=== PATIENT | male | born 1945 | race Caucasian/White ===

== ENCOUNTER 2017-07-06 20:40 | Emergency (ER) | payer MEDICARE, OTHER ==
[2017-07-06] MEDS ORDERED: Clindamycin Phosphate 300 MG/2 ML SDV IM ONE (22:09)
[2017-07-06] MEDS ORDERED: Clindamycin HCl 150 MG Cap PO ONE (22:09)
--- NOTE | 2017-07-06 22:13 | EDM.PDOC ---
ED HPI GENERAL MEDICAL PROBLEM - General Chief Complaint: ENT Problem Stated Complaint: TOOTH PAIN FACE SWOLLEN Time Seen by Provider: 07/06/17 21:55 Source of Information: Reports: Patient History Limitations: Reports: No Limitations - History of Present Illness INITIAL COMMENTS - FREE TEXT/NARRATIVE: Patient is a 72-year-old male who presents ED complaining of right lower jaw pain secondary to tooth abscess. Patient states Thursday he started developing some tenderness to this region. This progressed over the course of the last few days with increased swelling and also pain. Appetite has been poor. Denies any documented fever. He has a history of poor dentition and has had a tooth abscess in the past. He is planning to get in with this dentist tomorrow for evaluation. Denies any nausea or vomiting, stiff neck, and or headache. Patient is on Cardizem, lisinopril, warfarin, and metoprolol for hypertension and atrial fibrillation. Treatments MINISTER HELPER: Reports: NSAIDS Right Face Pain Score (Numeric/FACES): 4 - Related Data Allergies Allergy/AdvReac Type Severity Reaction Status Date / Time No Known Allergies Allergy Verified 07/06/17 20:51 Home Meds: Home Meds Clindamycin HCl 300 mg PO TID #21 capsule 07/06/17 [Rx] Diltiazem HCl [Diltiazem 24Hr Cd] 180 mg PO DAILY 07/06/17 [History] Lisinopril 20 mg PO DAILY 07/06/17 [History] Metoprolol Tartrate 50 mg PO DAILY 07/06/17 [History] Warfarin [Coumadin] 5 mg PO DAILY 07/06/17 [History] Past Medical History HEENT History: Reports: Impaired Vision Cardiovascular History: Reports: Afib, High Cholesterol, Hypertension Social & Family History - Family History Family Medical History: Noncontributory - Tobacco Use Smoking Status *Q: Never Smoker - Caffeine Use Caffeine Use: Reports: None - Recreational Drug Use Recreational Drug Use: No ED ROS ENT - Review of Systems Review Of Systems: ROS reveals no pertinent complaints other than HPI. ED EXAM, ENT - Physical Exam Exam: See Below Exam Limited By: No Limitations General Appearance: Alert, WD/WN, No Apparent Distress Eye Exam: Bilateral Eye: PERRL Ears: Hearing Grossly Normal Nose: Normal Inspection Mouth/Throat: Normal Inspection, Dental Tenderness (Patient has very poor dentition throughout his oral cavity. He is missing #31 and 30 tooth. Swelling along the gumline. No drainage noted. Pain with palpation.), Gum Swelling, Other (Patient does have increased swelling along the lower jaw line on the right side with increased pain on palpation.). No: Drooling, Dry Mucous Membrane, Hoarse Voice, Muffled Voice, Oral Ulcers, Throat Swelling, Tongue Swelling, Tonsillar Erythema, Tonsillar Exudates, Tonsillar Swelling, Trismus, Uvular Deviation Head: Atraumatic, Normocephalic Neck: Normal Inspection, Supple, Lymphadenopathy (R) (Slight lymphadenopathy noted. Mild pain present.). No: Non-Tender Respiratory/Chest: No Respiratory Distress, Lungs Clear, Normal Breath Sounds, No Accessory Muscle Use, Chest Non-Tender Cardiovascular: Normal Peripheral Pulses, Regular Rate, Rhythm Extremities: Normal Inspection Neurological: Alert, Oriented, CN II-XII Intact, Normal Cognition, No Motor/ Sensory Deficits Psychiatric: Normal Affect, Normal Mood Skin: Warm, Dry, Intact, Normal Color Course - Vital Signs Last Recorded V/S: Last Vital Signs Temp 98.4 F 07/06/17 20:47 Pulse 84 07/06/17 20:47 Resp 18 07/06/17 20:47 BP 146/79 H 07/06/17 20:47 Pulse Ox 95 07/06/17 20:47 - Orders/Labs/Meds Meds: Medications Discontinued Medications Generic Name Dose Route Start Last Admin Trade Name Vinodq PRN Reason Stop Dose Admin Hydrocodone Bitart/Acetaminophen 1 tab 07/06/17 22:20 07/06/17 22:31 Solomon 325-5 Mg PO 07/06/17 22:21 1 tab ONETIME ONE Administration Clindamycin HCl 300 mg 07/06/17 22:09 07/06/17 22:31 Cleocin PO 07/06/17 22:10 300 mg ONETIME ONE Administration Clindamycin Phosphate 600 mg 07/06/17 22:09 07/06/17 22:31 Cleocin IM 07/06/17 22:10 Not Given ONETIME ONE - Re-Assessments/Exams Free Text/Narrative Re-Assessment/Exam: Patient has a dental abscess. Ordered clindamycin 600mg IM and clindamycin 300 mgPO. I have also ordered norco 1 tab po. 2216 Per nursing we do not have the IM form of clindamycin. IV form only. Nursing staff has asked the patient if he would want to stay for IV form. Patient refuses. Thus will discharge home with instructions as documented. The patient remained hemodynamically stable while under my care in the E.D. I discussed the concerning symptoms for which to return to the E.D. with the patient/family. The patient/family verbalized understanding. All questions were answered. Departure - Departure Time of Disposition: 22:19 Disposition: Home, Self-Care 01 Condition: Good Clinical Impression: Abscess, dental - Discharge Information Prescriptions: Clindamycin HCl 300 mg PO TID #21 capsule Instructions: Dental Abscess, [id number] Referrals: Chalo Hassan MD [Primary Care Provider] - Forms: ED Department Discharge Additional Instructions: Apply warm compresses to the right-sided cheek 4 times a day 30 minutes in duration. Take the full course of clindamycin as prescribed. Utilize ibuprofen and Tylenol in alternating fashion for pain. Call and make an appointment with your dentist to be evaluated tomorrow or the next day for definitive treatment. He advised antibiotics will increase your PT/INR so please follow up with primary care provider in of this week for INR check. Modification of dosing may be required. Return to the ED if you develop any new or worsening symptoms as discussed.
[2017-07-06] MEDS ORDERED: Acetaminophen/HYDROcodone 325-5 MG Tab PO ONE (22:20)
== END 2017-07-06 22:30 | disposition home or self-care (01) ==
LOC: JD.ED 20:40
DX: K04.7 Periapical abscess without sinus (principal); I10 Essential (primary) hypertension; E78.00 Pure hypercholesterolemia, unspecified; I48.91 Unspecified atrial fibrillation; Z79.01 Long term (current) use of anticoagulants; Z79.899 Other long term (current) drug therapy
CPT/HCPCS: 99283; A9270

== ENCOUNTER → 2020-10-04 | Day surgery (SDC) | payer MEDICARE, OTHER ==
[~2020-10-04] MED LIST: Cefuroxime 10 MG/ML SYRINGE EYELF SCH; Lidocaine 1% PF 2 ML SDV INJECT SCH; Pilocarpine 4% Ophth Soln 15 ML Bot EYELF SCH
[2020-10-04] MEDS: Polymyxin B/Trimethoprim 10 ML Bottle EYELF SCH ×3 (09:56→11:16)
[2020-10-04] MEDS: Brimonidine 0.2% Ophth Soln 5 ML Bottle EYELF SCH ×3 (10:00→11:16)
[2020-10-04] MEDS: Phenylephrine 2.5% Ophth Soln 2 ML Bot EYELF SCH ×5 (10:06→10:51)
[2020-10-04] MEDS: Tropicamide 1% Ophth Soln 15 ML Bottle EYELF SCH ×4 (10:10→10:35)
--- NOTE | 2020-10-04 10:32 | PCM.PREANE ---
Preanesthetic Assessment - Procedure Proposed Procedure: left cataract extraction with IOL - Anesthesia/Transfusion/Family Hx Anesthesia History: Prior Anesthesia Without Reaction Family History of Anesthesia Reaction: No Transfusion History: No Prior Transfusion(s) - Review of Systems General: No Symptoms Pulmonary: No Symptoms Cardiovascular: No Symptoms Gastrointestinal: No Symptoms Neurological: Numbness (finger right hand) Other: Reports: None - Physical Assessment NPO Status Date: 10/03/20 NPO Status Time: 00:00 Height: 1.68 m Weight: 77.111 kg ASA Class: 2 Mental Status: Alert & Oriented x3 Airway Class: Mallampati = 1 Dentition: Reports: Missing Tooth/Teeth Thyro-Mental Finger Breadths: 3 Mouth Opening Finger Breadths: 3 ROM/Head Extension: Full Lungs: Clear to Auscultation, Normal Respiratory Effort Cardiovascular: Regular Rate, Regular Rhythm - Allergies Allergies/Adverse Reactions: Allergies Allergy/AdvReac Type Severity Reaction Status Date / Time No Known Allergies Allergy Verified 12/25/18 09:32 - Blood Blood Available: No Product(s) Available: None - Anesthesia Plan Pre-Op Medication Ordered: Beta Bryant Beta Bryant: Metoprolol Med Last Dose Date: 10/04/20 Med Last Dose Time: 07:00 - Acknowledgements Anesthesia Type Planned: MAC Pt an Appropriate Candidate for the Planned Anesthesia: Yes Alternatives and Risks of Anesthesia Discussed w Pt/Guardian: Yes Pt/Guardian Understands and Agrees with Anesthesia Plan: Yes PreAnesthesia Questionnaire HEENT History: Reports: Impaired Vision Cardiovascular History: Reports: Afib, High Cholesterol, Hypertension - SUBSTANCE USE Tobacco Use Status *Q: Never Tobacco User Tobacco Use Within Last Twelve Months: No Second Hand Smoke Exposure: No Days Per Week of Alcohol Use: 0 Number of Drinks Per Day: 0 Total Drinks Per Week: 0 Recreational Drug Use History: No - HOME MEDS Home Medications: Home Meds Diltiazem HCl [Diltiazem 24Hr Cd] 180 mg PO DAILY 07/06/17 [History] Lisinopril 20 mg PO DAILY 07/06/17 [History] Metoprolol Tartrate 25 mg PO BID 07/06/17 [History] Warfarin [Coumadin] 2.5 mg PO MOWEFR 07/06/17 [History] Hydrocodone/Acetaminophen [HYDROcodone-Acetaminophen 5-325 MG] 1 - 2 each PO Q6HR PRN #20 tablet 12/25/18 [Rx] Tamsulosin HCl [Flomax] 0.4 mg PO DAILY #7 cap.er.24h 12/25/18 [Rx] Warfarin [Coumadin] 5 mg PO SUTUTHSA 12/25/18 [History] - CURRENT (IN HOUSE) MEDS Current Meds: Current Medications Brimonidine Tartrate (Brimonidine 0.2% Ophth Soln 5 Ml Bottle) 0 ml EYELF ASDIRECTED VANDANA Stop: 10/04/20 18:00 Last Admin: 10/04/20 10:00 Dose: 1 drop Documented by: Cefuroxime Sodium (Cefuroxime 10 Mg/Ml Syringe) 0 mg EYELF ASDIRECTED VANDANA Stop: 10/04/20 18:00 Lidocaine HCl (Lidocaine 1% Pf 2 Ml Sdv) 0 ml INJECT ASDIRECTED VANDANA Stop: 10/04/20 18:00 Phenylephrine HCl (Phenylephrine 2.5% Ophth Soln 2 Ml Bot) 0 ml EYELF ASDIRECTED VANDANA Stop: 10/04/20 18:00 Last Admin: 10/04/20 10:20 Dose: 1 drop Documented by: Pilocarpine HCl (Pilocarpine 4% Ophth Soln 15 Ml Bot) 0 ml EYELF ASDIRECTED VANDANA Stop: 10/04/20 18:00 Polymyxin/Trimethoprim Sulfate (Polymyxin B/Trimethoprim 10 Ml Bottle) 0 ml EYELF ASDIRECTED VANDANA Stop: 10/04/20 18:00 Last Admin: 10/04/20 09:56 Dose: 1 drop Documented by: Tetracaine HCl (Tetracaine Hcl/Pf 0.5% 4 Ml Bottle) 0 ml EYEBOTH ASDIRECTED VANDANA Stop: 10/04/20 18:00 Tropicamide (Tropicamide 1% Ophth Soln 15 Ml Bottle) 0 ml EYELF ASDIRECTED VANDANA Stop: 10/04/20 18:00 Last Admin: 10/04/20 10:23 Dose: 1 drop Documented by:
[2020-10-04] MEDS: Tetracaine HCl/PF 0.5% 4 ML Bottle EYEBOTH SCH ×2 (10:43→11:03)
--- NOTE | 2020-10-04 11:19 | PCM48HPAN ---
Post Anesthesia Note - EVALUATION WITHIN 48HRS OF ANESTHETIC Vital Signs in Normal Range: Yes Patient Participated in Evaluation: Yes Respiratory Function Stable: Yes Airway Patent: Yes Cardiovascular Function Stable: Yes Hydration Status Stable: Yes Pain Control Satisfactory: Yes Nausea and Vomiting Control Satisfactory: Yes Mental Status Recovered: Yes - COMMENTS/OBSERVATIONS Free Text/Narrative:: 1117: 131/67 98% 68 13 97.0
== END ==
LOC: JD.SDS 09:42
PROVIDERS: ATTEND Ophthalmology
DX: H25.813 Combined forms of age-related cataract, bilateral (principal); I10 Essential (primary) hypertension; Z87.891 Personal history of nicotine dependence
CPT/HCPCS: 66984; J0697; V2632

== ENCOUNTER 2020-10-30 11:33 | Day surgery (SDC) | payer MEDICARE, OTHER ==
--- NOTE | 2020-10-30 11:40 | PCM.PREANE ---
Preanesthetic Assessment - Procedure Proposed Procedure: cataract extraction with iol right eye - Anesthesia/Transfusion/Family Hx Anesthesia History: Prior Anesthesia Without Reaction Family History of Anesthesia Reaction: No Transfusion History: No Prior Transfusion(s) - Review of Systems General: No Symptoms Pulmonary: No Symptoms Cardiovascular: Palpitations (afib) Gastrointestinal: No Symptoms Neurological: No Symptoms Other: Reports: None - Physical Assessment NPO Status Date: 10/29/20 NPO Status Time: 18:00 Vital Signs: 65 98.0 140/67 16 Height: 5 ft 6 in Weight: 77.111 kg ASA Class: 2 Mental Status: Alert & Oriented x3 Airway Class: Mallampati = 1 Dentition: Reports: Broken Tooth/Teeth Thyro-Mental Finger Breadths: 3 Mouth Opening Finger Breadths: 3 ROM/Head Extension: Full Lungs: Clear to Auscultation, Normal Respiratory Effort Cardiovascular: Regular Rate, Regular Rhythm - Allergies Allergies/Adverse Reactions: Allergies Allergy/AdvReac Type Severity Reaction Status Date / Time No Known Allergies Allergy Verified 10/29/20 18:12 - Blood Blood Available: No - Acknowledgements Anesthesia Type Planned: MAC Pt an Appropriate Candidate for the Planned Anesthesia: Yes Alternatives and Risks of Anesthesia Discussed w Pt/Guardian: Yes Pt/Guardian Understands and Agrees with Anesthesia Plan: Yes PreAnesthesia Questionnaire HEENT History: Reports: Impaired Vision Cardiovascular History: Reports: Afib, High Cholesterol, Hypertension Respiratory History: Reports: None Gastrointestinal History: Reports: None Psychiatric History: Reports: None Oncologic (Cancer) History: Reports: None - Past Surgical History GI Surgical History: Reports: Other (See Below) (hernia) - SUBSTANCE USE Tobacco Use Status *Q: Former Tobacco User Tobacco Use Within Last Twelve Months: No Second Hand Smoke Exposure: No Recreational Drug Use History: No - HOME MEDS Home Medications: Home Meds Diltiazem HCl [Diltiazem 24Hr Cd] 180 mg PO DAILY 07/06/17 [History] Lisinopril 20 mg PO DAILY 07/06/17 [History] Metoprolol Tartrate 25 mg PO BID 07/06/17 [History] Warfarin [Coumadin] 2.5 mg PO MOWEFR 07/06/17 [History] Hydrocodone/Acetaminophen [HYDROcodone-Acetaminophen 5-325 MG] 1 - 2 each PO Q6HR PRN #20 tablet 12/25/18 [Rx] Tamsulosin HCl [Flomax] 0.4 mg PO DAILY #7 cap.er.24h 12/25/18 [Rx] Warfarin [Coumadin] 5 mg PO SUTUTHSA 12/25/18 [History] - CURRENT (IN HOUSE) MEDS Current Meds: Current Medications Brimonidine Tartrate (Brimonidine 0.2% Ophth Soln 5 Ml Bottle) 0 ml EYERT ASDIRECTED VANDANA Stop: 10/30/20 18:00 Cefuroxime Sodium (Cefuroxime 10 Mg/Ml Syringe) 0 mg EYERT ASDIRECTED VANDANA Stop: 10/30/20 18:00 Lidocaine HCl (Lidocaine 1% Pf 2 Ml Sdv) 0 ml INJECT ASDIRECTED VANDANA Stop: 10/30/20 18:00 Phenylephrine HCl (Phenylephrine 2.5% Ophth Soln 2 Ml Bot) 0 ml EYERT ASDIRECTED VANDANA Stop: 10/30/20 18:00 Pilocarpine HCl (Pilocarpine 4% Ophth Soln 15 Ml Bot) 0 ml EYERT ASDIRECTED VANDANA Stop: 10/30/20 18:00 Polymyxin/Trimethoprim Sulfate (Polymyxin B/Trimethoprim 10 Ml Bottle) 0 ml EYERT ASDIRECTED VANDANA Stop: 10/30/20 18:00 Tetracaine HCl (Tetracaine Hcl/Pf 0.5% 4 Ml Bottle) 0 ml EYEBOTH ASDIRECTED VANDANA Stop: 10/30/20 18:00 Tropicamide (Tropicamide 1% Ophth Soln 15 Ml Bottle) 0 ml EYERT ASDIRECTED VANDANA Stop: 10/30/20 18:00
[2020-10-30] MEDS: Polymyxin B/Trimethoprim 10 ML Bottle EYERT SCH ×6 (11:50→13:35)
[2020-10-30] MEDS: Brimonidine 0.2% Ophth Soln 5 ML Bottle EYERT SCH ×6 (11:58→13:35)
[2020-10-30] MEDS: Phenylephrine 2.5% Ophth Soln 2 ML Bot EYERT SCH ×5 (12:02→13:05)
[2020-10-30] MEDS: Tropicamide 1% Ophth Soln 15 ML Bottle EYERT SCH ×4 (12:08→12:47)
[2020-10-30] MEDS: Tetracaine HCl/PF 0.5% 4 ML Bottle EYEBOTH SCH ×4 (12:55→13:24)
[2020-10-30] MEDS: Pilocarpine 4% Ophth Soln 15 ML Bot EYERT SCH ×4 (13:16→13:35)
[2020-10-30] MEDS: Cefuroxime 10 MG/ML SYRINGE EYERT SCH ×3 (13:16→13:26)
[2020-10-30] MEDS: Lidocaine 1% PF 2 ML SDV INJECT SCH ×3 (13:16→13:21)
--- NOTE | 2020-10-30 13:36 | PCM48HPAN ---
Post Anesthesia Note - EVALUATION WITHIN 48HRS OF ANESTHETIC Vital Signs in Normal Range: Yes Patient Participated in Evaluation: Yes Respiratory Function Stable: Yes Airway Patent: Yes Cardiovascular Function Stable: Yes Hydration Status Stable: Yes Pain Control Satisfactory: Yes Nausea and Vomiting Control Satisfactory: Yes Mental Status Recovered: Yes
== END 2020-10-30 13:40 | disposition home or self-care (01) ==
LOC: JD.SDS 11:33
PROVIDERS: ATTEND Ophthalmology
DX: H25.811 Combined forms of age-related cataract, right eye (principal); H35.3131 Nonexudative age-related macular degeneration, bilateral, early dry stage; H35.363 Drusen (degenerative) of macula, bilateral; H02.831 Dermatochalasis of right upper eyelid; H02.834 Dermatochalasis of left upper eyelid; H16.103 Unspecified superficial keratitis, bilateral; H16.223 Keratoconjunctivitis sicca, not specified as Sjogren's, bilateral; E78.00 Pure hypercholesterolemia, unspecified; I10 Essential (primary) hypertension; Z98.890 Other specified postprocedural states; Z87.891 Personal history of nicotine dependence; Z79.899 Other long term (current) drug therapy; Z79.01 Long term (current) use of anticoagulants; Z96.1 Presence of intraocular lens
CPT/HCPCS: 66984; J0697; V2632